=== PATIENT | male | born 1985 | race Caucasian/White ===

== ENCOUNTER 2016-08-08 17:33 | Inpatient (IN) | payer MEDICAID ==
[~2016-08-08] VITALS: Ht 165.1 cm; Wt 59.6 kg
[2016-08-08] MEDS ORDERED: ZOLPIDEM TARTRATE 10 MG TABLET PO PRN (18:15)
[2016-08-08] MEDS ORDERED: HALOPERIDOL 5 MG TABLET PO PRN (18:15)
[2016-08-08] MEDS ORDERED: LORazepam 2 MG TABLET PO PRN (18:15)
[2016-08-08 20:40] VITALS: BP 119/72
[2016-08-08 21:12] LABS: GLUCOSE,POINT OF CARE 157 MG/DL (70-110)
[2016-08-09 00:21] VITALS: BP 127/89
[2016-08-09 05:37] LABS: GLUCOSE,POINT OF CARE 139 MG/DL (70-110)
[2016-08-09] MEDS ORDERED: LEVOTHYROXINE SODIUM 125 MCG TABLET PO SCH (06:30)
[2016-08-09] MEDS ORDERED: MetFORMIN HCL 500 MG TABLET PO SCH (07:00)
[2016-08-09 07:46] LABS: BASOPHILS % (AUTO) 0.6 % (0.0-2.0); EOSINOPHILS % (AUTO) 0.2 % (1.0-6.0); HEMATOCRIT 43.8 % (41-53); HEMOGLOBIN 14.4 g/dL (13.5-17.5); LYMPHOCYTES # (AUTO) 3.2 K/uL (1.0-4.8); LYMPHOCYTES % (AUTO) 41.7 % (22.0-44.0); MEAN CORPUSCULAR HEMOGLOBIN 31.9 pg (26.0-34.0); MEAN CORPUSCULAR HGB CONC 32.9 G/dL (31.0-37.0); MEAN CORPUSCULAR VOLUME 97 fL (80-100); MONOCYTES # (AUTO) 0.7 K/uL (0.1-1.0); MONOCYTES % (AUTO) 9.5 % (2.0-9.0); NEUTROPHILS # (AUTO) 3.6 K/uL (1.8-7.7); PLATELET COUNT (AUTO) 290 K/uL (150-450); RED BLOOD CELL COUNT(AUTO) 4.52 MIL/uL (4.50-5.90); RED CELL DISTRIBUTION WIDTH 12.8 % (11.5-14.5); WHITE BLOOD COUNT (AUTO) 7.6 K/uL (4.5-11.0)
[2016-08-09 08:19] LABS: ALANINE AMINOTRANSFERASE 24 U/L (12-78); ALBUMIN 4.4 g/dL (3.4-5.0); ANION GAP 8 mmol/L (8-16); ASPARTATE AMINOTRANSFERASE 13 U/L (15-37); BILIRUBIN,TOTAL 0.4 mg/dL (0.1-1.0); CALCIUM, TOTAL 9.2 mg/dL (8.8-10.5); CARBON DIOXIDE 32 mmol/L (22-29); CHLORIDE 102 mmol/L (98-107); CREATININE 0.68 mg/dL (0.60-1.30); GLOMERULAR FILTR. RATE CALC > 60 mL/min (>60); POTASSIUM 4.2 mmol/L (3.5-5.1); SODIUM SERUM 142 mmol/L (136-145); THYROID STIMULATING HORMONE 4.57 uIU/mL (0.36-3.74); UREA NITROGEN, BLOOD 10 mg/dL (7-18)
[2016-08-09 08:20] VITALS: BP 127/76
[2016-08-09 08:33] LABS: HEMOGLOBIN A1C 6.3 % (4.5-6.2)
[2016-08-09] MEDS ORDERED: LinaGLIPtin 5 MG TABLET PO SCH (09:00)
[2016-08-09] MEDS ORDERED: PIOGLITAZONE HCL 15 MG TABLET PO SCH (09:00)
[2016-08-09] MEDS ORDERED: CarBAMazepine 200 MG ER TABLET PO SCH (09:00)
[2016-08-09] MEDS ORDERED: METF1000 PO (09:47)
[2016-08-09] MEDS ORDERED: CARB200T PO (09:47)
[2016-08-09] MEDS ORDERED: LEVO125 PO (09:49)
[2016-08-09] MEDS ORDERED: PIOG15TA13 PO (09:50)
[2016-08-09] MEDS ORDERED: LINA5TAB PO (10:35)
== END 2016-08-09 13:16 | disposition home or self-care (01) | DRG 754 ==
LOC: B2S 19:00 → EDSTATUS 20:13
PROVIDERS: ADMIT Psychiatry & Neurology Psychiatry; ATTEND Psychiatry & Neurology Psychiatry
DX: F32.9 Major depressive disorder, single episode, unspecified (principal); R45.851 Suicidal ideations; G40.209 Localization-related (focal) (partial) symptomatic epilepsy and epileptic syndromes with complex partial seizures, not intractable, without status epilepticus; E11.9 Type 2 diabetes mellitus without complications; E03.9 Hypothyroidism, unspecified
CPT/HCPCS: 82962; 83036; 84439; 84443